=== PATIENT | female | born 1990 | race Caucasian/White ===

== ENCOUNTER → 2016-09-05 | Outpatient (CLI) | payer OTHER ==
[~2016-09-05] MED LIST: MOTRIN600 MG PO; TRIMOX,POLYMOX250 MG PO
== END | disposition home or self-care (01) ==
LOC: LAB 09:23
DX: R19.7 Diarrhea, unspecified (principal); K59.00 Constipation, unspecified

== ENCOUNTER → 2016-10-04 | Outpatient (CLI) | payer OTHER | END | disposition home or self-care (01) | LOC: LAB 14:20 | DX: R19.7 Diarrhea, unspecified (principal) ==

== ENCOUNTER → 2023-06-23 | Outpatient (CLI) | payer OTHER ==
[2023-06-23 14:36] LABS: HEMATOCRIT 43.6 % (37.0-47.0); MEAN CELL VOLUME 76.1 fl (81.0-99.0); MEAN CORPUSCULAR HGB CONC 30.3 g/dl (33.0-37.0); MEAN PLATELET VOLUME 9.8 fl (9.6-12.3); PLATELET COUNT AUTOMATED 364 10*3/uL (130-400); RED BLOOD COUNT 5.73 10*6/uL (4.10-5.10); RED CELL DISTRI WIDTH 14.8 % (0-14.5); RETICULOCYTE % 1.25 % (0.50-2.50); WHITE BLOOD COUNT 8.1 10*3/uL (4.8-10.8)
[2023-06-23 14:38] LABS: BILIRUBIN Negative (Negative); BLOOD Negative (Negative); CLARITY Clear (Clear); COLOR Yellow (Yellow); GLUCOSE Negative (Negative); KETONE Negative (Negative); LEUKO ESTERASE Negative (Negative); NITRITE Negative (Negative); PH 7.5 (4.5-8.0); SPECIFIC GRAVITY <= 1.005 (1.001-1.030)
[2023-06-23 15:02] LABS: BACTERIA TRACE; RBC 0-2 rbc/hpf (0-2)
[2023-06-23 15:32] LABS: PLATELET SUFFICIENCY NORMAL (NORMAL); TOTAL CELLS COUNTED 100 #CELLS
[2023-06-23 15:34] LABS: OVALOCYTES FEW; ROULEAUX SLIGHT
[2023-06-23 15:46] LABS: ALKALINE PHOSPHATASE 108 U/L (46-116); BUN 7 mg/dl (9-23); CHLORIDE 104 mmol/L (98-107); CHOLESTEROL 164 mg/dL (<200); GAMMA GLUTAMYL TRANSPEPTIDASE 14 U/L (0-73); LDL CHOLESTEROL 96 mg/dL (9-159); POTASSIUM 3.4 mmol/L (3.4-5.1); SGPT/ALT 12 U/L (5-49); T3 UPTAKE 23.1 % (22.4-36.7); THYROXINE (T4) TOTAL 11.7 ug/dl (4.5-10.9); TOTAL PROTEIN 8.9 gm/dL (6.0-8.0); TRIGLYCERIDES 102 mg/dl (<150); URIC ACID 6.5 mg/dL (3.1-7.8)
[2023-06-23 15:59] LABS: B-hCG (QUALITATIVE) NEGATIVE (NEGATIVE); BETA-HCG, QUANT < 3.0 mIU/mL (3-10)
[2023-06-24 06:10] LABS: TOTAL PROTEIN, SERUM 7.8 g/dL (6.0-8.5)
[2023-06-24 08:11] LABS: SEX HORMONE BINDING GLOBULIN 36.1 nmol/L (24.6-122.0)
[2023-06-24 14:09] LABS: ALBUMIN 3.9 g/dL (2.9-4.4); ALPHA-1-GLOBULIN 0.3 g/dL (0.0-0.4); ALPHA-2-GLOBULIN 0.8 g/dL (0.4-1.0); ANTI-DSDNA ANTIBODIES 5 IU/mL (0-9); BETA GLOBULIN 1.1 g/dL (0.7-1.3); GAMMA GLOBULIN 1.7 g/dL (0.4-1.8); GLOBULIN, TOTAL 3.9 g/dL (2.2-3.9)
[2023-06-26 22:05] LABS: HUMAN GROWTH HORMONE 0.2 ng/mL (0.0-10.0)
[2023-06-28 08:05] LABS: DEHYDROEPIANDROSTERONE 443 ng/dL (31-701)
== END | disposition home or self-care (01) ==
LOC: LAB 13:59
PROVIDERS: ATTEND Family Medicine
DX: E78.5 Hyperlipidemia, unspecified (principal); E55.9 Vitamin D deficiency, unspecified; R79.89 Other specified abnormal findings of blood chemistry; R53.83 Other fatigue; R74.8 Abnormal levels of other serum enzymes

== ENCOUNTER → 2024-04-25 | Outpatient (CLI) | payer OTHER | END | disposition home or self-care (01) | LOC: RAD 15:40 | PROVIDERS: ATTEND Family Medicine | DX: R06.02 Shortness of breath (principal) ==